=== PATIENT | female | born 1950 | race Caucasian/White ===

== ENCOUNTER 2016-05-26 11:08 | Day surgery (SDC) | payer OTHER, MEDICARE ==
[2016-05-26] MEDS ORDERED: LR 1,000 ML IV ONE (12:00)
[2016-05-26] MEDS ORDERED: CEFAZOLIN 1 GM/DEXTROSE/50 ML BAG IV ONE (12:42)
[2016-05-26] MEDS ORDERED: BUPIVACAINE 0.5% 30 ML SDV ONE (13:59)
[2016-05-26] MEDS ORDERED: MIDAZOLAM 2 MG/2 ML VIAL ONE (14:01)
[2016-05-26] MEDS ORDERED: fentaNYL 100 MCG/2 ML INJ ONE (14:14)
[2016-05-26] MEDS ORDERED: PROPOFOL/EMULSION 500 MG/50 ML BOTTLE IV ONE (14:14)
[2016-05-26] MEDS ORDERED: PROPOFOL 200 MG/20 ML VIAL ONE (15:08)
[2016-05-26] MEDS ORDERED: LIDOCAINE 2% 5 ML SDV ONE (15:08)
[2016-05-26] MEDS ORDERED: KETOROLAC 30 MG/1 ML SDV ONE (15:37)
--- NOTE | 2016-05-27 08:38 | GOP ---
[f rep st] OPERATIVE REPORT DATE OF OPERATION: 05/26/2016 SURGEON: Travis Baldwin DPM OFFICE MACHINE TECHNICIAN: None. ANESTHESIA: MAC with local, 30 mL 0.5% Marcaine plain. PREOPERATIVE DIAGNOSIS: 1. Rupture of peroneal tendon, left lower extremity. 2. Metatarsalgia, left foot. 3. Plantar fasciitis, left foot. POSTOPERATIVE DIAGNOSIS: 1. Rupture of peroneal tendon, left lower extremity. 2. Metatarsalgia, left foot. 3. Plantar fasciitis, left foot. PROCEDURE PERFORMED: 1. Secondary repair of peroneal tendon, left lower extremity, with amniotic tissue wrap. 2. Tailor bunionectomy, left lower extremity, with 5th metatarsal osteotomy and internal fixation. 3. Endoscopic plantar fasciotomy, left foot. 4. Application of a short-leg cast, left lower extremity. 5. Excision of bursa, left foot. FINDINGS: Consistent with diagnosis. ESTIMATED BLOOD LOSS: 0 mL. INDICATIONS: Patient has longstanding pain in 3 areas, including the peroneal tendon, left lower ex tremity, the Tailor bunion, left lower extremity, and the plantar fascia, left lower extremity. The patient has been under conservative treatment protocols for nearly 1 year and has failed all conser vative treatment. Continues having pain and has elected to undergo surgical correction at this time . DESCRIPTION OF PROCEDURE: After identification, the patient was brought into the operating room and placed on the operating room table in the supine position. Following IV sedation, local anesthesia was obtained on the patient's left lower extremity utilizing a total of 30 mL 0.5% Marcaine plain. The foot was then scrubbed, prepped, and draped in the usual aseptic manner. Pneumatic ankle tourn iquet was placed around the patient's left lower extremity. An Esmarch bandage was utilized to exsa nguinate the patient's left lower extremity. The pneumatic ankle tourniquet was inflated. Attention was first directed to the lateral aspect of the patient's left ankle where a 5 cm curvilin ear incision was made at the distal aspect of the fibula following the course of the peroneal tendon s. This incision was deepened through the subcutaneous tissue with care being taken to identify and retract all vital neural and vascular structures. Bleeders were ligated and cauterized as necessar y. Incision was deepened to the level of the peroneal tendon sheath, which was incised linearly, th us exposing the peroneus longus and peroneus brevis tendons at the operative site. These tendons we re evaluated and the peroneus longus tendon is noted to have several significant split tearing appro ximately 6 cm in length. All nonviable and fibrous tendon tissue was excised and passed from the op erative field. Extensive synovitis was noted within the peroneal tendon sheath, which was excised a nd passed from the operative field as a tenosynovectomy. The peroneus brevis tendon was evaluated a nd noted to be pristine. The peroneus longus tendon was again debrided of all synovitis and nonviab le tendon tissue. The tendon was then retubularized using 0 Vicryl. Upon completion of this proced ure, the tendon is noted to be of normal size and shape, and fits nicely within the peroneal groove at the distal fibula. This tendon was then wrapped with a Smart Voicemailtronic amniotic tissue wrap in standar d technique. The peroneal tendon sheath was then reapproximated utilizing 2-0 Vicryl, subcutaneous tissue reapproximated utilizing 3-0 Vicryl, and the skin is reapproximated utilizing 4-0 Nylon in a horizontal mattress suture technique. Attention was then directed to the lateral aspect of the patient's left foot where a 4 cm linear laurel gitudinal incision was made at the dorsal medial aspect of the 5th metatarsophalangeal joint. This incision was deepened through the subcutaneous tissue with care being taken to identify and retract all vital neural and vascular structures. Bleeders were ligated and cauterized as necessary. This incision was deepened to the level of the 5th metatarsophalangeal joint capsule, which was linearly incised. The capsular structures were reflected dorsally and plantarly, thus exposing the 5th metat arsal at the operative site. Using a guide, a through and through Z-shaped scarf osteotomy was perf ormed from lateral to medial in the 5th metatarsal head, neck, and shaft. Upon completion of this t hrough and through osteotomy, the capital fragment was translated medially into a more anatomically correct position. After temporary fixation, a 2.5 headless Arthrex screw is driven obliquely across this osteotomy site to serve as stable fixation. Position is evaluated at this time and noted to b e excellent. Fixation is evaluated and noted to be extremely stable. The redundant lateral bone sh elf was then excised and passed from the operative field. The area was smoothed with a bone mary. The incision site was then flushed with normal sterile saline solution. Capsular structures were re approximated utilizing 3-0 Vicryl, subcutaneous tissue reapproximated utilizing 3-0 Vicryl, skin sloane pproximated utilizing 4-0 Nylon in a horizontal mattress suture technique. Position of the 5th ray is noted to be excellent at this time, and the prominence at the lateral 5th metatarsal head is gone . I have noted that during this lateral incision, prior to the capsular incision, a bursa was remov ed at the lateral aspect of the 5th metatarsal head and passed from the operative field. Attention was then directed to the plantar aspect of the patient's left heel where, prior to anesthe kusum, a grid pattern of dots was drawn on the skin with a skin marker over the area of maximum tender ness at the insertion of the plantar fascia into the medial calcaneal tubercle. This grid consists of dots spaced approximately 8 mm apart, totalling approximately 24 dots. A 0.62 K-wire was utilize d to puncture each dot on this grid pattern. This puncture extended through the skin only. Upon co mpletion of puncturing each dot in this grid, the Readlyn wand was inserted through each puncture and the plantar fascia was coblated and released in a systematic fashion. At the conclusion of this procedure, all incisions were dressed with Adaptic, 4x4 gauze, Webril, Kli ng. The patient's left lower extremity was placed in a fiberglass cast posterior splint in a neutra l position. The patient was transported to the postoperative recovery area with vital signs stable and vascular status intact to the left lower extremity. The patient tolerated procedure and anesthe kusum well. HEMOSTASIS: Left pneumatic ankle tourniquet inflated to 250 mmHg for 65 minutes. MATERIALS: 2.5 headless Arthrex screw x1. Amniotic tissue wrap from Smart Voicemailtronic x1. 0, 2-0, 3-0 Juan Carlos ryl. 4-0 Nylon. INJECTABLES: None. CONDITION: Stable. /[id number]/MODL
== END 2016-05-26 17:30 | disposition home or self-care (01) ==
LOC: FSGY 11:08
PROVIDERS: ATTEND Podiatrist
PROC: 0MBT0ZZ Excision of Left Foot Bursa and Ligament, Open Approach (ICD-10-PCS; 2016-05-26)
PROC: 0KNW4ZZ Release Left Foot Muscle, Percutaneous Endoscopic Approach (ICD-10-PCS; 2016-05-26)
PROC: 0LQW0ZZ Repair Left Foot Tendon, Open Approach (ICD-10-PCS; principal; 2016-05-26 12:45)
PROC: 0QBP0ZZ Excision of Left Metatarsal, Open Approach (ICD-10-PCS; 2016-05-26 12:45)
DX: M66.372 Spontaneous rupture of flexor tendons, left ankle and foot (principal); M21.622 Bunionette of left foot; M72.2 Plantar fascial fibromatosis; M77.42 Metatarsalgia, left foot; M65.872 Other synovitis and tenosynovitis, left ankle and foot; Z87.891 Personal history of nicotine dependence
CPT/HCPCS: 28092; 28110; 28200; 29893; C1769; C1713; C9399; J0690; J1885; J2250; J2704; J3010

== ENCOUNTER 2018-04-19 05:49 | Observation (INO) | payer OTHER, MEDICARE ==
[2018-04-19] MEDS ORDERED: TRANEXAMIC ACID 3,000 MG in NS (SYRINGE) 50 ML IRR ONE (06:00)
[2018-04-19] MEDS ORDERED: ROPIVACAINE 0.2% 80 MG, EPINEPHrine 0.2 MG, KETOROLAC TROMETHAMINE 30 MG in SYRINGE 0 ML IU ONE (06:00)
[2018-04-19] MEDS ORDERED: ACETAMINOPHEN 325 MG TAB PO ONE (06:20)
[2018-04-19] MEDS ORDERED: ceFAZolin 2 GM/DEXTROSE 100 ML IV ONE (06:20)
[2018-04-19] MEDS ORDERED: DEXAMETHASONE 4 MG/ML VIAL IVP ONE (06:20)
[2018-04-19] MEDS ORDERED: FAMOTIDINE 20 MG TAB PO ONE (06:20)
[2018-04-19] MEDS ORDERED: LR 1,000 ML IV ONE (06:20)
[2018-04-19] MEDS ORDERED: CALCIUM CHLORIDE 1 GM/10 ML INJ ONE (06:58)
[2018-04-19] MEDS ORDERED: THROMBIN (BOVINE) 5,000 UNIT VIAL TP ONE (06:58)
[2018-04-19] MEDS ORDERED: ceFAZolin 1 GM/5 ML SYR ONE (06:59)
[2018-04-19] MEDS ORDERED: MIDAZOLAM 2 MG/2 ML VIAL IVP ONE (07:00)
--- NOTE | 2018-04-19 07:04 | PDHPUP ---
History & Physical Update H&P update statement: This history and physical update is based on an assessment of the patient which was completed after admission or registration (within 24 hours), but prior to the surgery/procedure. H&P update: H&P reviewed & patient examined, no change in patient's condition since H&P completed
[2018-04-19] MEDS ORDERED: BUPIVACAINE/DEXTROSE 7.5MG/ML 2 ML SPINAL AMP SP ONE (07:06)
[2018-04-19] MEDS ORDERED: PROPOFOL/EMULSION 500 MG/50 ML BOTTLE IV ONE ×2 (07:06→08:45)
--- NOTE | 2018-04-19 07:07 | PDANEPAE ---
ANE Past Medical History - Cardiovascular History Hx Hypertension: No Hx Arrhythmias: No Hx Chest Pain: No Hx Coronary Artery / Peripheral Vascular Disease: No Hx CHF / Valvular Disease: No Hx Palpitations: No - Pulmonary History Hx COPD: No Hx Asthma/Reactive Airway Disease: No Hx Recent Upper Respiratory Infection: No Hx Oxygen in Use at Home: Yes Hx Sleep Apnea: No Sleep Apnea Screening Result - Last Documented: Negative Pulmonary History Comment: O2 FOR NOC HYPOXIA - NO SLEEP APNEA - Neurologic History Hx Cerebrovascular Accident: No Hx Seizures: No Hx Dementia: No - Endocrine History Hx Diabetes: No - Renal History Hx Renal Disorders: No - Liver History Hx Hepatic Disorders: No - Neurological & Psychiatric Hx Hx Neurological and Psychiatric Disorders: No Neurological / Psychiatric History Comment: INSOMNIA - Cancer History Hx Cancer: No Cancer History Comment: SKIN LESION REM BENIGN - Congenital Disorder History Hx Congenital Disorders: No - GI History Hx Gastrointestinal Disorders: No - Other Health History Other Health History: R SHOULDER RTC TEAR - FELL 2 MONTHS AGO AND HEALING WELL - Chronic Pain History Chronic Pain: No - Surgical History Prior Surgeries: spinal fusion. colonoscopy ANE Review of Systems Review of Systems: - Exercise capacity METS (RN): 4 METS ANE Patient History - Allergies Allergies/Adverse Reactions: diclofenac [From Voltaren] Allergy (Verified 03/26/18 14:22) Rash - Home Medications Home Medications: Naproxen Sodium [Aleve] 220 mg PO DAILY 05/26/16 [Last Taken 05/16/16] traMADol [Ultram 50 mg (*)] 1 tab PO DAILY 05/26/16 [Last Taken 05/25/16] Ascorbic Acid [Vitamin C 500 mg (*)] 500 mg PO DAILY 03/26/18 [Last Taken Unknown] Calcium Carbonate [Oyster Shell Calcium 500 mg (*)] 500 mg PO DAILY 03/26/18 [ Last Taken Unknown] Carboxymethylcellulose 1% [Refresh Celluvisc (*)] 1 drop EACHEYE DAILY PRN 03/26 [Last Taken Unknown] Cholecalciferol Vit D3 [Vitamin D3 (*)] 1,000 units PO DAILY 03/26/18 [Last Taken Unknown] Herbals/Supplements -Info Only 1 ea PO DAILY 03/26/18 [Last Taken Unknown] Multivitamins [Multivitamin (*)] 1 each PO DAILY 03/26/18 [Last Taken Unknown] - NPO status NPO Since - Liquids (Date): 04/19/18 NPO Since - Liquids (Time): 06:00 NPO Since - Solids (Date): 04/18/18 NPO Since - Solids (Time): 22:00 - Smoking Hx Smoking Status: Current every day smoker - Family Anes Hx Family Hx Anesthesia Complications: NEG ANE Labs/Vital Signs - Vital Signs Blood Pressure: 125/72 Heart Rate: 65 Respiratory Rate: 14 O2 Sat (%): 92 Height: 161.29 cm Weight: 76.204 kg ANE Physical Exam - Airway Neck exam: FROM Mallampati Score: Class 1 Mouth exam: dentures - Pulmonary Pulmonary: clear to auscultation - Cardiovascular Cardiovascular: regular rate and rhythym - ASA Status ASA Status: II ANE Anesthesia Plan Anesthesia Plan: spinal Regional Anesthesia: single shot NB, adductor canal FNB
[2018-04-19] MEDS ORDERED: TRANEXAMIC ACID 3,000 MG/50 ML BAG IRR ONE (07:35)
[2018-04-19] MEDS ORDERED: ePHEDrine SULFATE 25 MG/5 ML SYR ONE (07:46)
[2018-04-19] MEDS ORDERED: PHENYLEPHRINE 10 MG/ML SDV ONE (07:49)
--- NOTE | 2018-04-19 08:14 | POSTANESTH ---
Post Anesthetic Evaluation Cardiovascular Status: Normal, Stable Respiratory Status: Normal, Stable Level of Consciousness/Mental Status: Can Participate in Eval Pain Control: Adequate, Prn Tx Ordered Nausea/Vomiting Control: Adequate, Prn Tx Ordered Complications Possibly Related to Anesthesia: None Noted
[2018-04-19] MEDS ORDERED: ROPIVACAINE HCL 150 MG/30 ML INJ ONE (08:42)
[2018-04-19] MEDS ORDERED: HYDROmorphONE/DILAUDID 2 MG/ML INJ IVP PRN (09:14)
[2018-04-19] MEDS ORDERED: PHENYLEPHRINE HCL 100 MCG/ML SYR IVP PRN (09:14)
[2018-04-19] MEDS ORDERED: fentaNYL 100 MCG/2 ML INJ IVP PRN (09:14)
[2018-04-19] MEDS ORDERED: NALOXONE HCL 0.4 MG/ML INJ IVP PRN (09:14)
[2018-04-19] MEDS ORDERED: ALBUTEROL 3 ML DEYVIAL IH PRN (09:14)
[2018-04-19] MEDS ORDERED: DIAZEPAM 5 MG/ML 1 ML SYR IVP PRN (09:14)
[2018-04-19] MEDS ORDERED: ONDANSETRON 4 MG/2 ML VIAL IVP PRN ×2 (09:14→10:12)
[2018-04-19] MEDS ORDERED: PROMETHAZINE HCL 25 MG/ML INJ IVP PRN ×2 (09:14→10:12)
[2018-04-19] MEDS ORDERED: LABETALOL HCL 5 MG/ML 20 ML MDV IVP PRN (09:14)
[2018-04-19] MEDS ORDERED: MEPERIDINE 25 MG/0.5 ML AMP IVP PRN (09:14)
[2018-04-19] MEDS ORDERED: LR 500 ML IV PRN (09:14)
[2018-04-19] MEDS ORDERED: BISACODYL 10 MG SUPP PR PRN (10:12)
[2018-04-19] MEDS ORDERED: PROMETHAZINE HCL 25 MG SUPPR PR PRN (10:12)
[2018-04-19] MEDS ORDERED: POLYETHYLENE GLYCOL 3350 17 GM PKT PO PRN (10:12)
[2018-04-19] MEDS ORDERED: ONDANSETRON DISINTEGRATING 4 MG TAB PO PRN (10:12)
[2018-04-19] MEDS ORDERED: METOCLOPRAMIDE 10 MG/2 ML VIAL IVP PRN (10:12)
[2018-04-19] MEDS ORDERED: LACTULOSE 20 GM/30 ML UDCUP PO PRN (10:12)
[2018-04-19] MEDS ORDERED: MAGNESIUM HYDROXIDE 30 ML UDCUP PO PRN (10:12)
[2018-04-19] MEDS ORDERED: diphenhydrAMINE 25 MG CAP PO PRN (10:12)
[2018-04-19] MEDS ORDERED: DIPHENOXYLATE/ATROPINE LOMOTIL 1 TAB PO PRN (10:12)
[2018-04-19] MEDS ORDERED: CARBOXYMETHYLCELLULOSE 1% 0.4 ML DROPERETTE EACHEYE PRN (10:17)
--- NOTE | 2018-04-19 10:19 | POSTOPPROG ---
Post Op Note Date of Operation: 04/19/18 Surgeon: Zoraida Monreal Road Builder: Demetrice Morse PA-C Anesthesiologist: Dr. Nation Anesthesia: GET(General Endotracheal), Spinal Pre-op Diagnosis: right knee osteoarthritis Post-op Diagnosis: right knee osteoarthritis Indication: right knee pain Procedure: right TKA Inf/Abcess present in the surg proc area at time of surgery?: No EBL: 50-100 Complications: none
--- NOTE | 2018-04-19 10:21 | SOAPPROG ---
SOAP Progress Note Assessment/Plan: Assessment/Plan: 67y/o female s/p right TKA - stable and doing well - xrays pending - medications as ordered - PT/OT - active care system for DVT prevention, ASA starts tomorrow - call with issues or concerns 04/19/18 10:19 Subjective: No knee pain, doing well Objective: Vital Signs Temp Pulse Resp BP Pulse Ox 37.0 C 65 18 109/82 H 96 04/19/18 09:47 04/19/18 07:07 04/19/18 10:12 04/19/18 10:12 04/19/18 10:12 NAD, well appearing, no distress EOMi, face symmetric moves leg bilaterally incision clean, dressed ICD10 Worksheet Patient Problems: Problems Problem Status Onset Osteoarthritis Acute - ICD10 Problem Qualifiers (1) Osteoarthritis
[2018-04-19] MEDS ORDERED: LR 1,000 ML IV SCH (10:30)
[2018-04-19] MEDS: ACETAMINOPHEN 325 MG TAB PO SCH ×2 (11:49→18:47)
[2018-04-19] MEDS: CYCLOBENZAPRINE 10 MG TAB PO PRN ×2 (12:00→20:12)
[2018-04-19] MEDS: oxyCODONE IR 5 MG TAB PO PRN ×3 (12:00→20:11)
--- NOTE | 2018-04-19 13:01 | GOP ---
DATE OF OPERATION: 04/19/2018 SURGEON: Zoraida Monreal MD RN ORTHOPAEDICS: Demetrice Morse, ABIGAIL ANESTHESIA: Spinal with sedation and adductor canal block by Dr. Montelongo. PREOPERATIVE DIAGNOSIS: Severe osteoarthritis, right knee. POSTOPERATIVE DIAGNOSIS: Severe osteoarthritis, right knee. PROCEDURE PERFORMED: Right total knee arthroplasty. FINDINGS: Preoperative x-rays of the patient's right knee demonstrated severe medial compartment art hrosis with a marked varus deformity of the knee. The patient also had moderate degenerative change in both the lateral compartment and the patellofemoral compartment. At the time of surgery, these fi ndings were confirmed. The patient had complete loss of the cartilage surface in the medial compartm ent. There was bone loss on the medial tibial plateau. There was also complete loss of articular ca rtilage on the patella and moderate articular cartilage loss in the lateral compartment. A cemented Gerber [employer] Nephew Journey II total knee arthroplasty was performed. A size 5 right femoral component was cemented into place and a size 4 tibial base plate was cemented into place. A 35 mm round patell ar component was cemented as well. A 10 mm cross-linked polyethylene insert was placed in the metal backing of the tibia. Following implantation of the components, the patient achieved full extension and 135 degrees of flexion. Her knee was stable to varus and valgus stressing in extension and flexi on. ESTIMATED BLOOD LOSS: Minimal. DESCRIPTION OF PROCEDURE: The patient was taken the operating room, placed in a supine position on t he operating table. Following induction of adequate spinal and general anesthesia, the knee and leg were prepped and draped in the usual sterile manner. The patient received 1 g of IV Ancef. The leg was elevated and exsanguinated, and the tourniquet inflated to 275 mmHg. The Merkuo leg javier was u sed throughout the procedure for positioning. A midline incision was made extending from 2 fingerbreadths above the superior pole of the patella di stally to the tibial tubercle. Incision was carried down through subcutaneous tissue to the retinacu lum of the knee. A medial parapatellar arthrotomy was then performed. The patella was everted later ally and the thickness was determined and then a 9 mm cut was taken from the posterior aspect of the patella. The patella was sized, and then, the patella was placed in the lateral gutter and protected throughout the procedure. The distal femoral drill hole was made. Intramedullary referencing was utilized for making the dista l femoral cut. A +2 cut was taken from the distal femur. The femur was then sized and a size 5 femo ral component was chosen as the best size. The size 5 cutting block was placed on the distal femur a nd the anterior, posterior, and chamfer cuts were made. The notch was cleared with the reamer, follo wed by the box osteotome. A trial reduction was performed with the femoral component. An excellent fit was noted. Our attention was then turned to the tibia. The tibia was retracted anteriorly, and again, intramedu llary referencing was utilized for the tibia. The intramedullary guide was positioned and pinned, an d then, the tibial cut was made based on the previous determination using the lollipop insert. Once the tibial cut had been made, the knee was brought into extension, and the medial and lateral meniscu s were removed using the lamina automatic presser. The 9 mm lollipop passed well in both flexion and extensio n. The knee was flexed back up and the tibia was sized. A size 4 tibial component was chosen as the best fit and it was pinned. The trial reduction was then performed with the femoral and tibial comp onents and the 9, 10, and 11 mm thick polyethylenes. The best fit with the 10 mm polyethylene. The patella was prepared and a trial reduction was also performed with a 35 mm patellar component. All of the trial components were removed and the bony surfaces were thoroughly irrigated and dried. The tibia was punched prior to removing the tibial component. The cement was then mixed and the tibi al component was cemented first, followed by the femur and the patella. The knee was brought into ex tension with the polyethylene insert in place. Excess cement was removed from around the edges of th e components. Once the cement was hard, the trial polyethylene was removed, and the cross-linked kirsten yethylene insert was inserted without difficulty. The wound was thoroughly irrigated out and the sta bility and range of motion were checked. The retinaculum of the knee was then closed using #2 FiberW elida in a [id number] fashion. Prior to implantation of the components, the posterior capsule was injected with joint cocktail and tranexamic acid was utilized in the joint. The subcutaneous tissue s were closed using 2-0 Vicryl. The skin was closed using segun. Sterile dressings were applied. The patient tolerated the procedure well and there were no complications. Estimated blood loss minim al. Final sponge, needle counts were correct. The patient was transferred to the recovery room in g ood condition. /[id number]/MODL
[2018-04-19] MEDS: ceFAZolin 2 GM/DEXTROSE 100 ML IV SCH (15:28)
[2018-04-19] MEDS: SENNOSIDES/DOCUSATE SODIUM TAB PO SCH (20:12)
[2018-04-19] MEDS: FAMOTIDINE 20 MG TAB PO SCH (20:12)
[2018-04-20] MEDS: ACETAMINOPHEN 325 MG TAB PO SCH ×3 (00:49→11:09)
[2018-04-20] MEDS: ceFAZolin 2 GM/DEXTROSE 100 ML IV SCH (00:51)
[2018-04-20] MEDS: oxyCODONE IR 5 MG TAB PO PRN ×3 (04:58→13:37)
[2018-04-20] MEDS: CYCLOBENZAPRINE 10 MG TAB PO PRN ×2 (04:58→13:36)
[2018-04-20] MEDS ORDERED: CALCIUM CARBONATE 500 MG TAB PO SCH (09:00)
[2018-04-20] MEDS ORDERED: ASPIRIN 325 MG TAB PO SCH (09:00)
[2018-04-20] MEDS ORDERED: ASCORBIC ACID 500 MG TAB PO SCH (09:00)
[2018-04-20] MEDS: SENNOSIDES/DOCUSATE SODIUM TAB PO SCH (09:40)
[2018-04-20] MEDS: FAMOTIDINE 20 MG TAB PO SCH (09:40)
--- NOTE | 2018-04-20 12:08 | SOAPPROG ---
SOAP Progress Note Assessment/Plan: Assessment/Plan: 67y/o female s/p right TKA, POD#1 - stable and doing well - xrays show stable alignment - medications as ordered, will continue Flexeril post-operative as well to help with cramping; patient notes increase in cramping from time to time, takes OTC potassium supplement with improvement, has discussed with PCP in the past. Will obtain stat BMP to be sure no prominent hypokalemia - PT/OT - active care system for DVT prevention, ASA - call with issues or concerns, discharge pending BMP 04/20/18 12:05 Subjective: Having cramping in both legs and in hands a big. Notes she has issues with this from time to time. Doing well with Oxycodone Objective: Vital Signs Temp Pulse Resp BP Pulse Ox 36.7 C 69 18 134/64 H 94 04/20/18 07:36 04/20/18 07:36 04/20/18 07:36 04/20/18 07:36 04/20/18 07:36 Laboratory Results 04/20/18 05:33 04/19/18 04/20/18 04/21/18 05:59 05:59 05:59 Intake Total 1585 Output Total 870 300 Balance 715 -300 NAD, well appearing, no distress EOMi, face symmetric knee extension near full flexion 50, pain limited currently incision CDI, no erythema or active drainage new dressing placed in sterile fashion ICD10 Worksheet Patient Problems: Problems Problem Status Onset Osteoarthritis Acute - ICD10 Problem Qualifiers (1) Osteoarthritis
[2018-04-20 13:16] VITALS: BP 120/72
--- NOTE | 2018-04-20 16:11 | ASMTCMCOM ---
CM Note CM Note Notes: Pt had planned OA of knee, resides with spouse. PT rec home/outpatient. No CM d/c needs identified. Date Signed: 04/20/2018 04:10 PM Electronically Signed By:JEANINE Pop
--- NOTE | 2018-04-27 11:05 | GDS ---
ADMISSION DIAGNOSIS: Severe osteoarthritis of the right knee. DISCHARGE DIAGNOSIS: Severe osteoarthritis of the right knee. HOSPITAL COURSE: The patient is a pleasant 67-year-old female who is well known to our service for o ngoing severe right knee pain. Imaging studies and exam findings were consistent with severe end-sta ge osteoarthritis. After careful decision-making and discussion, the patient elected to proceed fort h with right total knee arthroplasty. This procedure was done by Dr. Zoraida Monreal on April 19. The patient tolerated the procedure well without complication. After PACU criteria was met, misael wilson was transferred to the floor. She worked with physical therapy and occupational therapy and contin ued to progress. Her pain was well managed. She had laboratory studies completed as she had some cr amping in her leg and hands. This was not an unusual case for her. She stated she had this symptom occasionally every month. Her sodium was slightly low. She was instructed to increase her salt inta ke and follow up with her primary care doctor for followup labs the next week. She agreed to do so. She was in good and stable condition, and cramping was improved at the time of discharge. She was g pauloen strict instruction to follow up with our office on May 03, 2018, or sooner with any issues o r changes. All of her questions were answered prior to discharge. /[id number]/MODL
== END 2018-04-20 14:40 | disposition home or self-care (01) ==
LOC: F3N 05:49
PROVIDERS: ADMIT Orthopaedic Surgery; ATTEND Orthopaedic Surgery
PROC: 0SRC069 Replacement of Right Knee Joint with Oxidized Zirconium on Polyethylene Synthetic Substitute, Cemented, Open Approach (ICD-10-PCS; principal; 2018-04-19 07:15)
DX: M17.11 Unilateral primary osteoarthritis, right knee (principal); G47.00 Insomnia, unspecified; Z98.1 Arthrodesis status
CPT/HCPCS: 27447; 73560; 88311; 97116; 97161; 97166; 97535; C1713; C1776; J0171; J0690; J1100; J1885; J2250; J2370; J2704; J2795

== ENCOUNTER → 2018-05-03 | Outpatient (CLI) | payer OTHER, MEDICARE | LOC: FIMAGING 14:46 | PROVIDERS: ATTEND Physician Assistant | DX: M79.604 Pain in right leg (principal); M79.89 Other specified soft tissue disorders ==

== ENCOUNTER → 2018-08-03 | Outpatient (CLI) | payer OTHER, MEDICARE | LOC: BHFA 08:30 | PROVIDERS: ATTEND Internal Medicine Interventional Cardiology | DX: R01.1 Cardiac murmur, unspecified (principal) ==

== ENCOUNTER → 2018-08-09 | Outpatient (CLI) | payer OTHER, MEDICARE | DX: I70.0 Atherosclerosis of aorta (principal) ==